=== PATIENT | male | born 1955 | race Asian ===

== ENCOUNTER 2017-04-20 07:35 | Day surgery (SDC) | payer OTHER ==
[~2017-04-20] VITALS: Ht 167.6 cm; Wt 74.8 kg
[2017-04-20] MEDS ORDERED: BACITRACIN ZINC 15 GM TOPICAL OINTMENT TP ONE (07:59)
[2017-04-20] MEDS ORDERED: SEVOFLURANE 15 MIN GAS INH ONE (07:59)
[2017-04-20] MEDS ORDERED: OXYMETAZOLINE HCL 0.05% NASAL SPRAY NS ONE (07:59)
[2017-04-20] MEDS ORDERED: GLYCOPYRROLATE 0.2 MG/ML VIAL IJ ONE (07:59)
[2017-04-20] MEDS ORDERED: MUPIROCIN 2% TOPICAL OINTMENT 22 GM TP ONE (07:59)
[2017-04-20] MEDS ORDERED: ROCURONIUM BROMIDE 10 MG/ML (ZEMURON) IV ONE (07:59)
[2017-04-20] MEDS ORDERED: fentaNYL CITRATE/PF 100 MCG/2 ML AMP IVP ONE (07:59)
[2017-04-20] MEDS ORDERED: MIDAZOLAM HCL 5 MG/5 ML VIAL IVP ONE (07:59)
[2017-04-20] MEDS ORDERED: EPINEPHrine 1 MG/ML AMP IVP ONE (07:59)
[2017-04-20] MEDS ORDERED: LR 1,000 ML IV.SOLN IV ONE (07:59)
[2017-04-20] MEDS ORDERED: ONDANSETRON HCL 4 MG/2 ML VIAL IVP ONE (07:59)
[2017-04-20] MEDS ORDERED: PROPOFOL 200MG/ 20ML VIAL (DIPRIVAN) IV ONE (07:59)
[2017-04-20] MEDS ORDERED: METOCLOPRAMIDE HCL 10 MG/2 ML VIAL IVP ONE (07:59)
[2017-04-20] MEDS ORDERED: LIDOCAINE/EPI 1% 1:100000 20 ML VIAL INJ ONE (07:59)
[2017-04-20] MEDS ORDERED: LR 1,000 ML IV ONE (08:55)
[2017-04-20] MEDS ORDERED: DIPHENHYDRAMINE INJ 50 MG/ML VIAL IVP PRN (09:00)
[2017-04-20] MEDS ORDERED: ONDANSETRON HCL 4 MG/2 ML VIAL IVP PRN ×2 (09:00)
[2017-04-20] MEDS ORDERED: NALOXONE HCL 0.4 MG/ML AMP (NARCAN) IVP PRN (09:00)
[2017-04-20] MEDS ORDERED: ePHEDrine sulfate 50 MG/ML VIAL IVP PRN (09:00)
[2017-04-20] MEDS ORDERED: NALBUPHINE HCL 10 MG/ML AMP IVP PRN (09:00)
[2017-04-20] MEDS ORDERED: fentaNYL CITRATE/PF 100 MCG/2 ML AMP IVP PRN (09:00)
[2017-04-20 10:50] VITALS: BP_SYST 131
== END 2017-04-20 12:12 | disposition home or self-care (01) ==
LOC: SMU 07:35 → SDS 07:35
PROVIDERS: ATTEND Otolaryngology
DX: J34.2 Deviated nasal septum (principal); J34.3 Hypertrophy of nasal turbinates; J34.89 Other specified disorders of nose and nasal sinuses; D38.5 Neoplasm of uncertain behavior of other respiratory organs; I10 Essential (primary) hypertension; Z87.891 Personal history of nicotine dependence; Z88.8 Allergy status to other drugs, medicaments and biological substances; M19.90 Unspecified osteoarthritis, unspecified site; N40.0 Benign prostatic hyperplasia without lower urinary tract symptoms
CPT/HCPCS: 30140; 30520; 31255; 31267; 88305; 88311; J0171; J2250; J2405; J2704; J2765; J3010; J3490; J7120